=== PATIENT | female | born 1955 | race Caucasian/White ===

== ENCOUNTER → 2023-05-17 | Emergency (ER) | payer OTHER ==
[~2023-05-17] MED LIST: CEFTRIAXONE 1000 MG/VIAL ONE; CIPROFLOXACIN HCL 500 MG TAB ONE; FENTANYL CITR 100 MCG/2 ML ONE; KETOROLAC 30 MG/ML INJ ONE; NA CHLORIDE 0.9% 1,000 ML ONE; ONDANSETRON 4 MG/2 ML VIAL ONE
--- OUTSIDE RECORDS SUMMARY | 2023-05-17 20:06 | XMS REPORT | Continuity of Care Document ---
Author Name Unknown Address [address] [facility] [address] [place] [address] [facility] thconnect Address [address] [facility] [address] [place] [address] Care Team Providers Care 911 Dispatcher Name Role Phone Darrel MTZ, Aravind Irwin Primary Care Physician Doctor Unassigned, Export Attending Clinician U IRAJ Cruz Attending Clinician Unavail able Only, Adc Pob2 Test Attending Clinician Unavaila Iraj Cifuentes DO Attending Clinician Lab, Adc Fam Pob I Attending Clinician Unavailab Adriane Galvan Attending Clinician [phone] ADRIANE CANO Attending Clinician Unavailabl e Jimmy Awad Attending Clinician [phone] JIMMY GALAVIZ Attending Clinician Unavailable Payers Payer Name Policy Type Policy Number Effective Date Expirati on Date Source Allergies, Adverse Reactions, Alerts Allergy Name Allergy Type Status Severity Reaction(s) Onset Date Inactive Date Treating Clinician Comments Source NO KNOWN ALLERGIE S Drug Class Active [facility] Social History Social Habit Start Date Stop Date Quantity Comments Source Sexual orientation U [facility] Exposure to SARS-CoV-2 (event) 2019-09-23 00:00:00 2019-10-23 09:44:00 Not sure [facility] Sex Assigned At 1955 00:00[birth year]00 1955 00:00:00 [facility] Smoking Status Start Date Stop Date Source Tobacco smoking consumption unknown [facility] Encounters Start Date/Time End Date/Time Encounter Type Admission Type Attending [facility] Care Department Encounter ID Source 2021-03-31 00:00:00 2021-03-31 00:00:00 Patient Secure Msg Doctor Unassigned, Export [facility] 1..840.114 [id number] [facility] 2021-03-26 13:30:00 2021-03-26 13:30:00 Outpatient IRAJ MARIA [facility] [id number] [facility] 2021-03-26 13:30:00 2021-03-26 13:30:00 Laboratory Only Only, Adc Pob2 Test Iraj [place] [facility] 1..840.114 [id number] [facility] 2021-03-26 13:30:00 2021-03-26 13:24:25 Outpatient IRAJ MARIA [facility] [id number] [facility] 2020-02-24 17:33:55 2020-02-24 17:53:55 Laboratory Only Lab, Adc Fam Pob I Adriane Cano [facility] [address] ..840.114 [id number] [facility] 2020-02-24 17:40:00 2020-02-24 17:40:00 Outpatient R ADRIANE CANO [facility] [id number] [facility] 2019-10-24 00:00:00 2019-10-24 00:00:00 Patient Secure Msg Doctor Unassigned, Export [facility] [id number] [facility] 2019-10-23 09:41:42 2019-10-23 10:01:42 Laboratory Only Lab, Adc [facility] Pob Jimmy Berg [facility] One 1..840.114 [id number] [facility] 2019-10-23 09:40:00 2019-10-23 09:40:00 Outpatient JIMMY KENDRICK [facility] [id number] [facility]
[2023-05-17 20:52] LABS: Absolute Lymphocytes (CBC) 2.9 K/uL (0.7-4.9); Hematocrit 37.5 % (36.0-45.0); Lymphocytes % 18.4 % (15.3-44.8); MCV 84.7 fL (80-100); MPV 7.4 fL (7.6-11.3); Platelets 296 thou/uL (152-406); RBC Red Blood Cell Count 4.43 M/uL (3.86-4.86)
[2023-05-17 21:10] LABS: Specific Gravity < 1.005 (1.005-1.030); Urine Bacteria <20 /HPF (<20); Urine Bilirubin NEGATIVE (Negative); Urine Blood 3+ (Negative); Urine Clarity Turbid (Clear); Urine Color Light-Yellow (Yellow); Urine Glucose NEGATIVE (Negative); Urine Protein NEGATIVE (Negative); Urine RBC <5 /HPF (None Seen); Urine Urobilinogen Normal (Normal); Urine WBC Clump Occasional /HPF (None Seen); Urine pH 6.5 (5.0-7.0)
[2023-05-17 21:13] LABS: Bilirubin Total 0.6 mg/dL (0.2-1.0); Potassium 3.6 mEq/L (3.5-5.1); Protein, Total 7.7 g/dL (6.4-8.2)
--- NOTE | 2023-05-17 21:26 | RAD REPORT ---
EXAM DESCRIPTION: CT - Stone Protocol - 05/17/2023 8:47 pm CLINICAL HISTORY: PAIN COMPARISON: No comparisons TECHNIQUE: Thin cut axial CT imaging of the abdomen and pelvis was performed without IV contrast. Mu ltiplanar reformats were generated and reviewed. All CT scans are performed using dose optimization technique as appropriate and may include automated exposure control or mA/KV adjustment according to patient size. FINDINGS: No suspicious findings in the lung bases. The liver, spleen, adrenal glands, and pancreas show no suspicious findings. Gallbladder was surgical ly removed. Symmetric renal contour, without suspicious parenchymal findings within limits of noncontrast techniq ue. No evidence of radiopaque calculi or hydroureteronephrosis. No dilated bowel loops or bowel wall thickening. No free air, free fluid or inflammatory stranding. N o hernia, mass or bulky lymphadenopathy. Status post hysterectomy. The urinary bladder is without sig nificant finding. No suspicious bony findings. IMPRESSION: No acute intra-abdominal process.
--- NOTE | 2023-05-17 22:00 | EDPHYS ---
Physician Documentation [facility] Name: Cris Minor Age: 67 yrs Sex: Female : 1955 Arrival Date: 05/17/2023 Time: 19:56 Bed 10 Private MD: Praveena Sotomayor ED Physician Bruno Jean HPI: 05/17 20:29 This 67 yrs old Female presents to ER via Ambulatory with complaints of manda Urinary Problem, Back Pain, Abdominal Pain. 20:29 The patient presents with pain that is acute, with no known mechanism of injury. The manda symptoms are located in the right mid back and right low back. Onset: The symptoms/episode began/occurred 2 day(s) ago. The pain radiates to the right mid back and right low back. Associated signs and symptoms: The patient has no apparent associated signs or symptoms. Modifying factors: The patient symptoms are alleviated by nothing, the patient symptoms are aggravated by nothing. Severity of symptoms: At their worst the symptoms were mild, moderate, in the emergency department the symptoms are unchanged. The patient has not experienced similar symptoms in the past. Historical: - Allergies: 20:12 No Known Allergies; rv - Home Meds: 20:12 None [Active]; rv - PMHx: 20:12 Hypertensive disorder; Hypercholesterolemia; Paroxysmal supraventricular tachycardia; rv - PSHx: 20:12 Appendectomy; Cholecystectomy; hysterectomy; rv - Immunization history:: Adult Immunizations up to date. - Social history:: Smoking status: Patient denies any tobacco usage or history of. - Family history:: not pertinent. ROS: 20:29 Constitutional: Negative for fever, chills, and weight loss, Eyes: Negative for injury, manda pain, redness, and discharge, ENT: Negative for injury, pain, and discharge, Neck: Negative for injury, pain, and swelling, Cardiovascular: Negative for chest pain, palpitations, and edema, Respiratory: Negative for shortness of breath, cough, wheezing, and pleuritic chest pain, : Negative for injury, bleeding, discharge, and swelling, MS/Extremity: Negative for injury and deformity, Skin: Negative for injury, rash, and discoloration, Neuro: Negative for headache, weakness, numbness, tingling, and seizure, Psych: Negative for depression, anxiety, suicide ideation, homicidal ideation, and hallucinations, Allergy/Immunology: Negative for hives, rash, and allergies, Endocrine: Negative for neck swelling, polydipsia, polyuria, polyphagia, and marked weight changes, Hematologic/Lymphatic: Negative for swollen nodes, abnormal bleeding, and unusual bruising, 20:29 Abdomen/GI: Positive for abdominal pain, of the posterior aspect of right lateral abdomen, anterior aspect of right lateral abdomen and right lower quadrant, Exam: 20:29 Constitutional: This is a well developed, well nourished patient who is awake, alert, manda and in no acute distress. Head/Face: Normocephalic, atraumatic. Eyes: Pupils equal round and reactive to light, extra-ocular motions intact. Lids and lashes normal. Conjunctiva and sclera are non-icteric and not injected. Cornea within normal limits. Periorbital areas with no swelling, redness, or edema. ENT: Nares patent. No nasal discharge, no septal abnormalities noted. Tympanic membranes are normal and external auditory canals are clear. Oropharynx with no redness, swelling, or masses, exudates, or evidence of obstruction, uvula midline. Mucous membranes moist. Neck: Trachea midline, no thyromegaly or masses palpated, and no cervical lymphadenopathy. Supple, full range of motion without nuchal rigidity, or vertebral point tenderness. No Meningismus. Chest/axilla: Normal chest wall appearance and motion. Nontender with no deformity. No lesions are appreciated. Cardiovascular: Regular rate and rhythm with a normal S1 and S2. No gallops, murmurs, or rubs. Normal PMI, no JVD. No pulse deficits. Respiratory: Lungs have equal breath sounds bilaterally, clear to auscultation and percussion. No rales, rhonchi or wheezes noted. No increased work of breathing, no retractions or nasal flaring. Abdomen/GI: Soft, non-tender, with normal bowel sounds. No distension or tympany. No guarding or rebound. No evidence of tenderness throughout. Female : Normal external genitalia. Skin: Warm, dry with normal turgor. Normal color with no rashes, no lesions, and no evidence of cellulitis. MS/ Extremity: Pulses equal, no cyanosis. Neurovascular intact. Full, normal range of motion. Neuro: Awake and alert, GCS 15, oriented to person, place, time, and situation. Cranial nerves II-XII grossly intact. Motor strength 5/5 in all extremities. Sensory grossly intact. Cerebellar exam normal. Normal gait. Psych: Awake, alert, with orientation to person, place and time. Behavior, mood, and affect are within normal limits. 20:29 Back: pain, that is mild, that is moderate, ROM is normal, normal spinal alignment noted, CVA tenderness, that is mild, is noted on the right, muscle spasm, is appreciated in the right mid back and right low back, Vital Signs: 20:10 BP 153 / 68; Pulse 72; Resp 17; Temp 97.6; Pulse Ox 100% ; Weight 68.04 kg; Height 5 rv ft. 1 in. ; 20:31 BP 147 / 71; Pulse 70; Resp 17 S; Pulse Ox 100% on R/A; ha1 21:15 BP 144 / 72; Pulse 68; Resp 17 S; Pulse Ox 98% on R/A; ha1 22:01 BP 131 / 63; Pulse 68; Resp 17 S; Temp 98.1; Pulse Ox 100% on R/A; ha1 22:09 BP 131 / 63; Pulse 66; Resp 16; Temp 98; Pulse Ox 99% on R/A; rv 20:10 Body Mass Index 28.34 (68.04 kg, 154.94 cm) rv MDM: 20:13 Patient medically screened. manda 20:36 Differential diagnosis: Hydronephrosis Osteoarthritis Pyelonephritis Renal Infarction manda ruptured disc, sprain, Ureterolithiasis. Data reviewed: vital signs, nurses notes, lab test result(s), radiologic studies, CT scan. Consideration of Admission/Observation Escalation of care including admission/observation considered. I considered the following discharge prescriptions or medication management in the emergency department Medications were administered in the Emergency Department. See MAR. Independent interpretation of the following test(s) in the Emergency Department CT Scan: My interpretation is ct stone. Test considered but Not performed: Ultrasound no abd usg. Historians other than the Patient: patient well informed. Care significantly affected by the following chronic conditions: Hypertension. 05/17 20:29 Order name: CBC with Diff; Complete Time: 20:54 manda 05/17 20: Order name: CMP; Complete Time: 21:48 manda 05/17 20: Order name: Lipase; Complete Time: 21:48 manda 05/17 20:29 Order name: Urinalysis w/ reflexes; Complete Time: 21:48 [facility] 05/17 21:13 Order name: Urine Culture EDAR 05/17 20:29 Order name: CT Stone Protocol; Complete Time: 21:48 [facility] 05/17 20:29 Order name: IV Saline Lock; Complete Time: 20:32 [facility] 05/17 20:29 Order name: Labs collected and sent; Complete Time: 20:32 manda Administered Medications: 20:54 Drug: NS 0.9% IV 1000 ml IV at 1 bolus Per protocol; 1000 mL bolus Route: IV; Rate: 1 ha1 bolus; Site: right forearm; 20:54 Drug: Ondansetron IVP 4 mg IVP once; over 2 minutes Route: IVP; Site: right forearm; ha1 21:15 Follow up: Response: No adverse reaction ha1 20:57 Drug: Ketorolac IVP 30 mg IVP once Route: IVP; Site: right forearm; ha1 21:15 Follow up: Response: No adverse reaction; Pain is decreased ha1 20:58 Drug: fentaNYL (PF) IVP 50 mcg IVP once Route: IVP; Site: right forearm; ha1 21:15 Follow up: Response: No adverse reaction; Pain is decreased; RASS: Alert and Calm (0) ha1 20:58 Drug: Rocephin IV 1 grams IV at per protocol once; Given slow IV push per pharmacy ha1 instructions Route: IV; Rate: per protocol; Site: right forearm; 21:15 Follow up: Response: No adverse reaction; IV Status: Completed infusion ha1 22:09 Drug: Ciprofloxacin PO 500 mg PO once Route: PO; rv 22:09 Follow up: Response: Medication administered at discharge. rv Disposition Summary: 05/17/23 22:00 Discharge Ordered Notes: Location: Home manda Problem: new manda Symptoms: have improved manda Condition: Stable manda Diagnosis - UTI/ Urinary tract infection, site not specified manda - Elevated white blood cell count manda Followup: manda - With: Praveena Sotomayor - When: 2 - 3 days - Reason: Recheck today's complaints, Continuance of care, Re-evaluation by your physician Discharge Instructions: - Discharge Summary Sheet manda - Abdominal Pain, Adult manda - Urinary Tract Infection, Adult manda - Urinary Tract Infection, Adult, [id number] manda - Abdominal Pain, Adult, [id number] [facility] Forms: - Medication Reconciliation Form [facility] - Thank You Letter manda - Antibiotic Education manda - Prescription Opioid Use manda - Patient Portal Instructions [facility] - Leadership Thank You Letter manda Prescriptions: - acetaminophen-codeine 300-30 mg Oral tablet - take 2 tablet ORAL route every 6 hours as needed for pain; 20 tablet; Refills: [facility] 0, Product Selection Permitted - ondansetron 4 mg Oral Tablet,disintegrating - take 1 tablet ORAL route every 6 to 8 hours as needed for nausea and vomiting; [facility] 20 tablet; Refills: 0, Product Selection Permitted - Cipro 500 mg Oral Tablet - take 1 tablet ORAL route every 12 hours for 7 days; 14 tablet; Refills: 0, [facility] Product Selection Permitted - Bactrim DS 800-160 mg Oral tablet - take 1 tablet ORAL route every 12 hours for 5 days; 10 tablet; Refills: 0, [facility] Product Selection Permitted Signatures: Dispatcher [employer] Bruno Mars MD MD cha Vicente, Ronaldo RN Kristal Gregg RN RN ha1
--- NOTE | 2023-05-17 22:00 | ER ---
Nurse's Notes [facility] Name: Cris Minor Age: 67 yrs Sex: Female : 1955 Arrival Date: 05/17/2023 Time: 19:56 Bed 10 Private MD: Praveena Sotomayor Diagnosis: UTI/ Urinary tract infection, site not specified;Elevated white blood cell count Presentation: 05/17 20:10 Chief complaint: Patient states: back pain started morning today, with burning, rv frequency, and urgency with urination. pain rad to right groin. denies fever/chills/vomiting. Coronavirus screen: At this time, the client does not indicate any symptoms associated with coronavirus-19. Ebola Screen: No symptoms or risks identified at this time. Initial Sepsis Screen: Does the patient meet any 2 criteria? No. Patient's initial sepsis screen is negative. Does the patient have a suspected source of infection? No. Patient's initial sepsis screen is negative. Risk Assessment: Do you want to hurt yourself or someone else? Patient reports no desire to harm self or others. Onset of symptoms was May 17, 2023. 20:10 Method Of Arrival: Ambulatory rv 20:10 Acuity: MARIA ELENA 3 rv Triage Assessment: 20:12 General: Appears in no apparent distress. Behavior is calm, cooperative. Pain: rv Complains of pain in back. Neuro: Level of Consciousness is awake, alert, obeys commands, Oriented to person, place, time, situation. Cardiovascular: Capillary refill < 3 seconds Patient's skin is warm and dry. Respiratory: Airway is patent Respiratory effort is even, unlabored. GI: No signs and/or symptoms were reported involving the gastrointestinal system. : Reports burning with urination, pain urgency, urinary frequency. Musculoskeletal: Range of motion: intact in all extremities. Historical: - Allergies: 20:12 No Known Allergies; rv - Home Meds: 20:12 None [Active]; rv - PMHx: 20:12 Hypertensive disorder; Hypercholesterolemia; Paroxysmal supraventricular tachycardia; rv - PSHx: 20:12 Appendectomy; Cholecystectomy; hysterectomy; rv - Immunization history:: Adult Immunizations up to date. - Social history:: Smoking status: Patient denies any tobacco usage or history of. - Family history:: not pertinent. Screenin:[facility] Fall Risk Assessment (Adult) History of falling in the last 3 months, rv including since admission No falls in past 3 months (0 pts) Score/Fall Risk Level 0 - 2 = Low Risk Oriented to surroundings, Maintained a safe environment, Educated pt \T\ family on fall prevention, incl call for assistance when getting out of bed, Assessed \T\ reinforced patient's understanding of fall precautions. Abuse screen: Denies threats or abuse. Denies injuries from another. Nutritional screening: No deficits noted. Tuberculosis screening: No symptoms or risk factors identified. Assessment: 20:15 General: Appears uncomfortable, Behavior is cooperative. Pain: Complains of pain in ha1 back flank Pain radiates to pelvis Pain currently is 9 out of 10 on a pain scale. Quality of pain is described as burning, throbbing, Pain began 1 day ago. Neuro: Level of Consciousness is awake, alert, obeys commands, Oriented to person, place, time, situation. Cardiovascular: Capillary refill < 3 seconds Patient's skin is warm and dry. Respiratory: Airway is patent Respiratory effort is even, unlabored, Respiratory pattern is regular, symmetrical. GI: No signs and/or symptoms were reported involving the gastrointestinal system. : Urine is clear, Reports burning with urination, pain in bilateral flank(s), urgency. Derm: Skin is pink, warm \T\ dry. Musculoskeletal: Circulation, motion, and sensation intact. Range of motion: intact in all extremities. 21:15 Reassessment: Patient and/or family updated on plan of care and expected duration. Pain ha1 level reassessed. Patient is alert, oriented x 3, equal unlabored respirations, skin warm/dry/pink. pain 2/10 Patient states feeling better. Patient states symptoms have improved. 22:01 Reassessment: Patient and/or family updated on plan of care and expected duration. Pain ha1 level reassessed. Patient is alert, oriented x 3, equal unlabored respirations, skin warm/dry/pink. Vital Signs: 20:10 BP 153 / 68; Pulse 72; Resp 17; Temp 97.6; Pulse Ox 100% ; Weight 68.04 kg; Height 5 rv ft. 1 in. ; 20:31 BP 147 / 71; Pulse 70; Resp 17 S; Pulse Ox 100% on R/A; ha1 21:15 BP 144 / 72; Pulse 68; Resp 17 S; Pulse Ox 98% on R/A; ha1 22:01 BP 131 / 63; Pulse 68; Resp 17 S; Temp 98.1; Pulse Ox 100% on R/A; ha1 22:09 BP 131 / 63; Pulse 66; Resp 16; Temp 98; Pulse Ox 99% on R/A; rv 20:10 Body Mass Index 28.34 (68.04 kg, 154.94 cm) rv ED Course: 20:05 Patient arrived in ED. mr 20:06 Praveena Sotomayor is Private Physician. mr 20:07 Praveena Sotomayor is Private Physician. mr 20:12 Triage completed. rv 20:12 Arm band placed on right wrist. rv 20:13 Bruno Jean MD is Attending Physician. manda 20:14 Patient has correct armband on for positive identification. Placed in gown. Bed in low ha1 position. Call light in reach. Side rails up X 1. 20:14 No provider procedures requiring assistance completed. rv 20:24 Inserted saline lock: 20 gauge in right antecubital area, using aseptic technique. rv Blood collected. 20:29 Kristal Brownlee, RN is Primary Nurse. ha1 20:49 CT Stone Protocol In Process Unspecified. EDMS 22:00 Praveena Sotomayor is Referral Physician. manda 22:09 IV discontinued, intact, bleeding controlled, No redness/swelling at site. Pressure rv dressing applied. Administered Medications: 20:54 Drug: NS 0.9% IV 1000 ml IV at 1 bolus Per protocol; 1000 mL bolus Route: IV; Rate: 1 ha1 bolus; Site: right forearm; 20:54 Drug: Ondansetron IVP 4 mg IVP once; over 2 minutes Route: IVP; Site: right forearm; ha1 21:15 Follow up: Response: No adverse reaction ha1 20:57 Drug: Ketorolac IVP 30 mg IVP once Route: IVP; Site: right forearm; ha1 21:15 Follow up: Response: No adverse reaction; Pain is decreased ha1 20:58 Drug: fentaNYL (PF) IVP 50 mcg IVP once Route: IVP; Site: right forearm; ha1 21:15 Follow up: Response: No adverse reaction; Pain is decreased; RASS: Alert and Calm (0) ha1 20:58 Drug: Rocephin IV 1 grams IV at per protocol once; Given slow IV push per pharmacy ha1 instructions Route: IV; Rate: per protocol; Site: right forearm; 21:15 Follow up: Response: No adverse reaction; IV Status: Completed infusion ha1 22:09 Drug: Ciprofloxacin PO 500 mg PO once Route: PO; rv 22:09 Follow up: Response: Medication administered at discharge. rv Medication: 20:14 VIS not applicable for this client. rv Outcome: 22:00 Discharge ordered by . manda 22:02 Condition: stable ha1 22:09 Discharged to home ambulatory, rv 22:09 Discharge instructions given to patient, Instructed on discharge instructions, follow up and referral plans. medication usage, Demonstrated understanding of instructions, follow-up care, medications, Prescriptions given X 4, 22:10 Patient left the ED. rv Signatures: Dispatcher [employer] EDMS Bruno Jean MD MD cha Rivera, Mary, [facility] Mike mr Javid Finnegan RN RN Kristla Brownlee RN RN [facility] Corrections: (The following items were deleted from the chart) 21:03 19:58 fentaNYL (PF) IVP 50 mcg IVP in right forearm 1 ha1 21: 19:55 Ketorolac IVP 30 mg IVP in right forearm [place] [id number] 21:03 19:44 NS 0.9% IV 1000 ml IV at 1 bolus in right forearm [place] [id number] 21:04 19:50 Ondansetron IVP 4 mg IVP in right forearm [place] [id number]
[2023-05-17 22:23] VITALS: BP 131/63; TEMP 98; O2SAT 99
== END ==
LOC: ER 19:56
DX: N39.0 Urinary tract infection, site not specified (principal); D72.829 Elevated white blood cell count, unspecified; I10 Essential (primary) hypertension
CPT/HCPCS: 87088; 85025; 81001; 87086; 36415; 83690; 80053; 76377; 74176; J3010; J2405; J7030; J0696

== ENCOUNTER 2023-06-24 08:04 | Emergency (ER) | payer OTHER ==
--- OUTSIDE RECORDS SUMMARY | 2023-06-24 08:07 | XMS REPORT | Continuity of Care Document ---
Author Name Unknown Address [address] [facility] [address] [place] [address] [facility] thconnect Address [address] [facility] [address] [place] [address] Care Team Providers Care Operating Room Orderly Name Role Phone Darrel MTZ, Aravind Irwin Primary Care Physician Doctor Unassigned, [place] Attending Clinician U IRAJ Cruz Attending Clinician Unavail able Only, Adc Pob2 Test Attending Clinician Unavaila Iraj Cifuentes DO Attending Clinician [phone] Lab, Adc Fam Pob I Attending Clinician Unavailab Adriane Galvan Attending Clinician [phone] ADRIANE CANO Attending Clinician Unavailabl e Jimmy Awad Attending Clinician [phone] JIMMY GALAVIZ Attending Clinician Unavailable Payers Payer Name Policy Type Policy Number Effective Date Expirati on Date Source Allergies, Adverse Reactions, Alerts Allergy Name Allergy Type Status Severity Reaction(s) Onset Date Inactive Date Treating Clinician Comments Source NO KNOWN ALLERGIE S Drug Class Active [facility] Social History Social Habit Start Date Stop Date Quantity Comments Source Sexual orientation U [facility] Exposure to SARS-CoV-2 (event) 2019-09-23 00:00:00 2019-10-23 09:44:00 Not sure [facility] Sex Assigned At 1955 00:00[birth year]00 1955 00:00:00 [facility] Smoking Status Start Date Stop Date Source Tobacco smoking consumption unknown [facility] Encounters Start Date/Time End Date/Time Encounter Type Admission Type Attending [facility] Facility Care Department Encounter ID Source 2021-03-31 00:00:00 2021-03-31 00:00:00 Patient Secure Msg Doctor Unassigned, Taylors [facility] 1..840.114 [id number] [id number] [facility] 2021-03-26 13:30:00 2021-03-26 13:30:00 Outpatient IRAJ [facility]IA [facility] [id number] [facility] 2021-03-26 13:30:00 2021-03-26 13:30:00 Laboratory Only Only, Adc Pob2 Test Iraj [place] [facility] 1..840.114 350.1.13.10 [id number] [facility] 2021-03-26 13:30:00 2021-03-26 13:24:25 Outpatient IRAJ MARIA [facility] [id number] [facility] 2020-02-24 17:33:55 2020-02-24 17:53:55 Laboratory Only Lab, Adc Fam Pob I Adriane Cano [facility] [address] 1..840.114 [id number] [id number] [facility] 2020-02-24 17:40:00 2020-02-24 17:40:00 Outpatient ADRIANE MITCHELL [facility] [id number] [facility] 2019-10-24 00:00:00 2019-10-24 00:00:00 Patient Secure Msg Doctor Unassigned, [place]lors [facility] 1..840.114 [id number] [id number] [facility] 2019-10-23 09:41:42 2019-10-23 10:01:42 Laboratory Only Lab, Adc Fam Pob Jimmy Berg [facility] 1..840.114 [id number] [id number] [facility] 2019-10-23 09:40:00 2019-10-23 09:40:00 Outpatient JIMMY KENDRICK [facility] [id number] [facility]
--- NOTE | 2023-06-24 08:24 | ER ---
Nurse's Notes [facility] Name: rCis Minor Age: 67 yrs Sex: Female : 1955 Arrival Date: 06/24/2023 Time: 08:04 Bed 16 Private MD: Diagnosis: Cellulitis of face Presentation: 06/23 08:15 Chief complaint: Patient states: L side of face redness, swelling getting worse since ll1 Monday morning. Saw her doctor and started antibiotics . No fever, + chills. Coronavirus screen: Vaccine status: Patient reports receiving the 2nd dose of the covid vaccine. Client denies travel out of the [place] in the last 14 days. At this time, the client does not indicate any symptoms associated with coronavirus-19. Ebola Screen: Patient denies travel to an Ebola-affected area in the 21 days before illness onset. 08:15 Method Of Arrival: Ambulatory ll1 08:15 Initial Sepsis Screen: Does the patient meet any 2 criteria? No. Patient's initial 1 sepsis screen is negative. Does the patient have a suspected source of infection? No. Patient's initial sepsis screen is negative. Risk Assessment: Do you want to hurt yourself or someone else? Patient reports no desire to harm self or others. Onset of symptoms was June 21, 2023. 08:15 Acuity: MARIA ELENA 3 ll1 Triage Assessment: 08:19 Bite description: bite sustained to L cheek by an unknown animal, animal information: ll1 vaccination(s) is not applicable. General: Appears uncomfortable, Behavior is calm, cooperative, appropriate for age. Pain: Complains of pain in L cheek Quality of pain is described as aching. Neuro: No deficits noted. Cardiovascular: No deficits noted. Derm: Abscess located on L cheek has no drainage, is hot to touch, is red, is raised. Historical: - Allergies: 08:15 Sulfa (Sulfonamide Antibiotics); ll1 - PMHx: 08:15 Hypercholesterolemia; Hypertensive disorder; Paroxysmal supraventricular tachycardia; ll1 carotid blockage (Paroxysmal supraventricular tachycardia); - PSHx: 08:15 Appendectomy; Cholecystectomy; hysterectomy; ll1 - Immunization history:: Adult Immunizations up to date. - Social history:: Smoking status: Patient denies any tobacco usage or history of. Screenin:19 [facility] ED Fall Risk Assessment (Adult) History of falling in the last 3 months, kc6 including since admission No falls in past 3 months (0 pts) Confusion or Disorientation No (0 pts) Intoxicated or Sedated No (0 pts) Impaired Gait No (0 pts) Mobility Assist Device Used No (0 pt) Altered Elimination No (0 pt) Score/Fall Risk Level 0 - 2 = Low Risk. Abuse screen: Denies threats or abuse. Denies injuries from another. Nutritional screening: No deficits noted. Tuberculosis screening: No symptoms or risk factors identified. Assessment: 08:19 Reassessment: please see triage. kc6 Vital Signs: 08:15 BP 150 / 82; Pulse 80; Resp 16; Temp 98; Pulse Ox 100% ; Weight 69.4 kg; Height 5 ft. 5 ll1 in. ; Pain 4/10; 08:15 Body Mass Index 25.46 (69.40 kg, 165.1 cm) ll1 08:15 Pain Scale: Adult ll1 ED Course: 08:08 Patient arrived in ED. im 08:08 Luis Fernando Colon DO is Attending Physician. ms3 08:13 Shalini Santacruz, JESSENIA is Primary Nurse. kc6 08:15 Arm band placed on Patient placed in an exam room, on a stretcher. ll1 08:19 Triage completed. ll1 08:19 Patient has correct armband on for positive identification. Bed in low position. Call kc6 light in reach. Side rails up X 1. Client placed on continuous cardiac and pulse oximetry monitoring. NIBP monitoring applied. 08:19 Patient maintains SpO2 saturation greater than 95% on room air. kc6 08:54 No provider procedures requiring assistance completed. Patient did not have IV access kc6 during this emergency room visit. Administered Medications: No medications were administered Medication: 08:54 VIS not applicable for this client. kc6 Outcome: 08:23 Discharge ordered by . ms3 08:54 Discharged to home ambulatory, kc6 08:54 Condition: good 08:54 Discharge instructions given to patient, Instructed on discharge instructions, follow up and referral plans. medication usage, Demonstrated understanding of instructions, follow-up care, medications, Prescriptions given X 1, 08:54 Patient left the ED. kc6 Signatures: Scott Minor RN RN ll1 Luis Fernando Colno DO DO ms3 Shalini Santacruz, RN RN kc6 Elle Manning Corrections: (The following items were deleted from the chart) 08:19 08:15 BP 150 / 82; Pulse 80bpm; ll1 ll1
--- NOTE | 2023-06-24 08:24 | EDPHYS ---
Physician Documentation [facility] Name: Cris Minor Age: 67 yrs Sex: Female : 1955 Arrival Date: 06/24/2023 Time: 08:04 Bed 16 Private MD: ED Physician Luis Fernando Colon HPI: 06/23 08:23 This 67 yrs old Female presents to ER via Ambulatory with complaints of Insect Bite - ms3 Face. 08:23 67-year-old female with past medical history of hyperlipidemia, hypertension, SVT ms3 presents to the emergency department for left facial rash. Patient states the rash began on Monday and she was seen by her primary care physician on and started on Augmentin and prednisone and the rash has become worse.. Historical: - Allergies: 08:15 Sulfa (Sulfonamide Antibiotics); ll1 - PMHx: 08:15 Hypercholesterolemia; Hypertensive disorder; Paroxysmal supraventricular tachycardia; ll1 carotid blockage (Paroxysmal supraventricular tachycardia); - PSHx: 08:15 Appendectomy; Cholecystectomy; hysterectomy; ll1 - Immunization history:: Adult Immunizations up to date. - Social history:: Smoking status: Patient denies any tobacco usage or history of. ROS: 08:23 Constitutional: Negative for fever, and chills. Neck: Negative for injury, pain, and ms3 swelling, Cardiovascular: Negative for chest pain, and palpitations. Respiratory: Negative for shortness of breath, cough, wheezing, and pleuritic chest pain, Abdomen/GI: Negative for abdominal pain, nausea, vomiting, diarrhea, and constipation, MS/Extremity: Negative for injury and deformity, 08:23 Skin: Positive for cellulitis, 08:23 All other systems are negative, Exam: 08:23 Constitutional: This is a well developed, well nourished patient who is awake, alert, ms3 and in no acute distress. 08:23 Cardiovascular: Regular rate and rhythm with a normal S1 and S2. No gallops, murmurs, or rubs. Normal PMI, no JVD. No pulse deficits. Respiratory: Lungs have equal breath sounds bilaterally, clear to auscultation and percussion. No rales, rhonchi or wheezes noted. No increased work of breathing, no retractions or nasal flaring. Abdomen/GI: Soft, non-tender, with normal bowel sounds. No distension or tympany. No guarding or rebound. No evidence of tenderness throughout. 08:23 Head/face: Noted is rash, cellulitis, Vital Signs: 08:15 BP 150 / 82; Pulse 80; Resp 16; Temp 98; Pulse Ox 100% ; Weight 69.4 kg; Height 5 ft. 5 ll1 in. ; Pain 4/10; 08:15 Body Mass Index 25.46 (69.40 kg, 165.1 cm) ll1 08:15 Pain Scale: Adult ll1 MDM: 08:23 Patient medically screened. ms3 08:23 Differential diagnosis: Cellulitis versus insect bite versus allergic reaction. Data ms3 reviewed: vital signs, nurses notes, and as a result, I will discharge patient. Care significantly affected by the following chronic conditions: Hypertension, Hyperlipidemia, SVT. Counseling: I had a detailed discussion with the patient and/or guardian regarding the historical points, exam findings, and any diagnostic results supporting the discharge/admit diagnosis, the need for outpatient follow up, to return to the emergency department if symptoms worsen or persist or if there are any questions or concerns that arise at home. Special discussion: I discussed with the patient/guardian in detail that at this point there is no indication for admission to the hospital. It is understood, however, that if the symptoms persist or worsen the patient needs to return immediately for re-evaluation. ED course: Discussed physical exam findings with patient. Patient given prescription for doxycycline. Patient to follow-up with primary care physician in 2 to 3 days. Patient understands and agrees with plan. All questions were answered. Return precautions discussed include worsening symptoms, or any other concerns.. Administered Medications: No medications were administered Disposition Summary: 06/24/23 08:23 Discharge Ordered Notes: Location: Home ms3 Condition: Stable ms3 Diagnosis - Cellulitis of face ms3 Followup: ms3 - With: Private Physician - When: 2 - 3 days - Reason: Recheck today's complaints Discharge Instructions: - Discharge Summary Sheet ms3 - Cellulitis, Adult ms3 Forms: - Medication Reconciliation Form ms3 - Thank You Letter ms3 - Antibiotic Education ms3 - Prescription Opioid Use ms3 - Patient Portal Instructions ms3 - Leadership Thank You Letter ms3 Prescriptions: - Doxycycline Monohydrate 100 mg Oral Tablet - take 1 tablet ORAL route every 12 hours for 10 days; 20 tablet; Refills: 0, ms3 Product Selection Permitted Signatures: Scott Minor, RN RN ll1 Luis Fernando Colon, DO ms3
[2023-06-24 09:24] VITALS: BP 150/82; TEMP 98; O2SAT 100
== END 2023-06-24 08:54 | disposition home or self-care (01) ==
LOC: ER 08:04
DX: L03.211 Cellulitis of face (principal); Z88.2 Allergy status to sulfonamides
CPT/HCPCS: 99284

== ENCOUNTER 2023-06-26 11:08 | Emergency (ER) | payer OTHER ==
--- OUTSIDE RECORDS SUMMARY | 2023-06-26 11:11 | XMS REPORT | Continuity of Care Document ---
Author Name Unknown Address [address] [facility] [address] [place] [address] [facility] thconnect Address [address] [facility] [address] [place] [address] Care Team Providers Care Sampler Radioactive Waste Name Role Phone Darrel MTZ, Aravind Irwin Primary Care Physician Doctor Unassigned, [place] Attending Clinician U IRAJ Cruz Attending Clinician Unavail able Only, Adc Pob2 Test Attending Clinician Unavaila Iraj Cifuentes DO Attending Clinician [phone] Lab, Adc Fam Pob I Attending Clinician Unavailab le Adriane Vargas Attending Clinician [phone] ADRIANE CANO Attending Clinician Unavailabl e Jimmy Awad Attending Clinician [phone] JIMMY GALAVIZ Attending Clinician Unavailable Payers Payer Name Policy Type Policy Number Effective Date Expirati on Date Source Allergies, Adverse Reactions, Alerts Allergy Name Allergy Type Status Severity Reaction(s) Onset Date Inactive Date Treating Clinician Comments Source NO KNOWN ALLERGIE S Drug Class Active [facility] Social History Social Habit Start Date Stop Date Quantity Comments Source Sexual orientation U [facility] Exposure to SARS-CoV-2 (event) 2019-09-23 00:00:00 2019-10-23 09:44:00 Not sure [facility] Sex Assigned At 1955 00:00:00 1955 00:00:00 [facility] Smoking Status Start Date Stop Date Source Tobacco smoking consumption unknown [facility] Encounters Start Date/Time End Date/Time Encounter Type Admission Type Attending [facility] Facility Care Department Encounter ID Source 2021-03-31 00:00:00 2021-03-31 00:00:00 Patient Secure Msg Doctor Unassigned, [place] [facility] 1..840.114 350.1.13.10 [id number] [facility] 2021-03-26 13:30:00 2021-03-26 13:30:00 Outpatient IRAJ MARIA [facility] [id number] [facility] 2021-03-26 13:30:00 2021-03-26 13:30:00 Laboratory Only Only, Adc Pob2 Test Iraj [place] [facility] 1..840.114 350.1.13.10 [id number] [id number] [facility] 2021-03-26 13:30:00 2021-03-26 13:24:25 Outpatient IRAJ MARIA [facility] [id number] [facility] 2020-02-24 17:33:55 2020-02-24 17:53:55 Laboratory Only Lab, Adc Fam Pob I Adriane Cano [facility] [address] 1..840.114 350.1.13.10 [id number] [facility] 2020-02-24 17:40:00 2020-02-24 17:40:00 Outpatient ADRIANE MITCHELL [facility] [id number] [facility] 2019-10-24 00:00:00 2019-10-24 00:00:00 Patient Secure Msg Doctor Unassigned, [place] [facility] [employer] [facility] 1..840.114 350.1.13.10 [id number] [id number] [facility] 2019-10-23 09:41:42 2019-10-23 10:01:42 Laboratory Only Lab, Adc Fam Pob Jimmy Berg [facility] 1..840.114 350.1.13.10 [id number] [facility] 2019-10-23 09:40:00 2019-10-23 09:40:00 Outpatient JIMMY KENDRICK [facility] [id number] [facility]
[2023-06-26 12:03] LABS: Absolute Basophils 0.1 K/uL (0-0.5); Absolute Monocytes 0.2 K/uL (0.1-1.3); Absolute Neutrophil 6.9 K/uL (1.8-8.0); Eosinophils % 0.3 % (0-4.4); Hematocrit 40.7 % (36.0-45.0); Hemoglobin 13.7 g/dL (12.0-15.0); Lymphocytes % 12.7 % (15.3-44.8); MCH 28.8 pg (27.0-35.0); MCHC 33.7 g/dL (32.0-36.0); MCV 85.7 fL (80-100); MPV 7.6 fL (7.6-11.3); Monocytes % 2.9 % (3.3-12.3); Neutrophils % 83.1 % (41.7-73.7); Platelets 368 thou/uL (152-406); RBC Red Blood Cell Count 4.75 M/uL (3.86-4.86); Red Cell Distribution Width 12.6 % (12.1-15.2)
[2023-06-26 12:20] LABS: Anion Gap 8.8 mEq/L (5.0-15.0); Potassium 3.8 mEq/L (3.5-5.1)
--- NOTE | 2023-06-26 12:50 | RAD REPORT ---
EXAM DESCRIPTION: CT - Soft Tissue Neck W/Contr - 06/26/2023 12:38 pm CLINICAL HISTORY: Neck pain and swelling COMPARISON: None. TECHNIQUE: Computed axial tomography of the neck was obtained. 50 cc Isovue 300 was administered in travenously. Coronal and sagittal reconstruction was performed. All CT scans are performed using dose optimization technique as appropriate and may include automated exposure control or mA/KV adjustment according to patient size. FINDINGS: The pharynx, tongue base, larynx and subglottic trachea appear unremarkable The parotid, submandibular and thyroid glands appear unremarkable. Mild to moderate stranding is present within the L subcutaneous tissues left cheek. No fluid-filled a bscess seen. Two preseptal air bubbles anterior to the left lobe. Small amount of fluid right and ethmoid maxillary sinus IMPRESSION: Left cheek cellulitis without fluid-filled abscess. Two air bubbles left preseptal. Left globe and intraorbital contents appear unremarkable Small amount of fluid right maxillary and ethmoid sinus may indicate an acute sinusitis.
--- NOTE | 2023-06-26 13:19 | EDPHYS ---
Physician Documentation [facility] Name: Cris Minor Age: 67 yrs Sex: Female : 1955 Arrival Date: 06/26/2023 Time: 11:08 Bed 6 Private MD: Praveena Sotomayor ED Physician Rafael Collins HPI: 06/25 11:43 This 67 yrs old Female presents to ER via Ambulatory with complaints of Facial Swelling.ec2 11:43 Patient arrives today d/t concern for L cheek swelling. Patient reports several days of ec2 swelling, initially on Augmentin, transition to doxycycline. Patient reports no fevers or chills, nausea or vomiting. Patient reports otherwise has been taking her antibiotics.. Historical: - Allergies: 11:39 Sulfa (Sulfonamide Antibiotics); ph - PMHx: 11:39 Carotid blockage (Paroxysmal supraven); Hypercholesterolemia; Hypertensive disorder; ph Paroxysmal supraventricular tachycardia; - PSHx: 11:39 Appendectomy; Cholecystectomy; hysterectomy; ph - Immunization history:: Adult Immunizations up to date, Client reports having NOT received the Covid vaccine. Last tetanus immunization: < 5 years ago. - Infectious Disease History:: Denies. - Social history:: Smoking status: Patient denies any tobacco usage or history of. ROS: 11:43 Constitutional: as per hpi ec2 Exam: 11:43 Constitutional: GEN: NAD Head: atraumatic Eyes: EOMI Ears: External ears are ec2 normal. CV: regular rate LUNGS: no respiratory distress ABD: non-distended SKIN: Erythema noted to the left cheek, no significant fluctuance appreciated. MSK: no evidence of trauma NEURO: moves all extremities equally Vital Signs: 11:36 BP 159 / 86; Pulse 81; Resp 20; Temp 98.1; Pulse Ox 100% ; Weight 69.4 kg; Height 5 ft. ph 4 in. ; Pain 6/10; 13:27 BP 143 / 69; Pulse 78; Resp 15; Pulse Ox 100% ; ll1 11:36 Body Mass Index 26.26 (69.40 kg, 162.56 cm) ph 11:36 Pain Scale: Adult ph MDM: 11:43 Patient medically screened. ec2 11:43 Data reviewed: vital signs. ED course: Patient arrives today for evaluation of left ec2 cheek erythema. Examination remarkable for cheek findings as above. Will obtain lab work, CT imaging. Evaluate for underlying abscess, suspect persistent cellulitis.. 12:50 ED course: CBC reassuring without leukocytosis, metabolic profile reassuring. Pending ec2 CT imaging. . 13:04 ED course: CT imaging shows cellulitis, no underlying abscess. Will discharge home and ec2 have follow-up primary care doctor and have her continue antibiotic coverage.. 06/25 11:43 Order name: CBC with Diff; Complete Time: 12:50 ec2 06/25 11:43 Order name: BMP; Complete Time: 12:50 ec2 06/25 12:32 Order name: Soft Tissue Neck W/Contr; Complete Time: 12:58 EDMS Administered Medications: No medications were administered Disposition Summary: 06/26/23 13:19 Discharge Ordered Notes: Location: Home ec2 Condition: Stable ec2 Diagnosis - Cellulitis of face ec2 Followup: ec2 - With: Private Physician - When: - Reason: Re-evaluation by your physician Discharge Instructions: - Discharge Summary Sheet ec2 - Cellulitis, Adult ec2 Forms: - Medication Reconciliation Form ec2 - Thank You Letter ec2 - Antibiotic Education ec2 - Prescription Opioid Use ec2 - Patient Portal Instructions ec2 - Leadership Thank You Letter ec2 Prescriptions: - Clindamycin HCl 150 mg Oral capsule - take 3 capsule ORAL route every 6 hours for 7 days; 63 capsule; Refills: 0, ec2 Product Selection Permitted Signatures: Dispatcher [employer] Sania Sargent RN RN Rafael Collins MD MD ec2 Corrections: (The following items were deleted from the chart) 11:44 11:44 Maxillofacial W/Cont+CT.RAD.BRZ ordered. BRAYAN SCHMIDT
--- NOTE | 2023-06-26 13:19 | ER ---
Nurse's Notes [facility] Name: Cris Minor Age: 67 yrs Sex: Female : 1955 Arrival Date: 06/26/2023 Time: 11:08 Bed 6 Private MD: Praveena Sotomayor Diagnosis: Cellulitis of face Presentation: 06/25 11:36 Chief complaint: Patient states: Cellulitis to left cheek/face since . Pt was ph on oral antibiotics from PCP, was seen in this ER on Monday and antibiotics switched to doxycycline, pt reports redness and swelling is worse today. Coronavirus screen: Vaccine status: Patient reports being unvaccinated. Client denies travel out of the [place] in the last 14 days. Ebola Screen: Patient negative for fever greater than or equal to 101.5 degrees Fahrenheit, and additional compatible Ebola Virus Disease symptoms Patient denies exposure to infectious person. Patient denies travel to an Ebola-affected area in the 21 days before illness onset. Initial Sepsis Screen: Does the patient meet any 2 criteria? No. Patient's initial sepsis screen is negative. Does the patient have a suspected source of infection? No. Patient's initial sepsis screen is negative. Risk Assessment: Do you want to hurt yourself or someone else? Patient reports no desire to harm self or others. Onset of symptoms was June 22, 2023. 11:36 Method Of Arrival: Ambulatory 11:36 Acuity: MARIA ELENA 3 ph Triage Assessment: 11:39 General: Appears in no apparent distress. uncomfortable, Behavior is calm, cooperative. ph Pain: Complains of pain in left cheek Pain does not radiate. Pain currently is 6 out of 10 on a pain scale. Quality of pain is described as burning. Derm: Reports increased burning, pain that is 6 out of 10 on a pain scale. Historical: - Allergies: 11:39 Sulfa (Sulfonamide Antibiotics); ph - PMHx: 11:39 Carotid blockage (Paroxysmal supraven); Hypercholesterolemia; Hypertensive disorder; ph Paroxysmal supraventricular tachycardia; - PSHx: 11:39 Appendectomy; Cholecystectomy; hysterectomy; ph - Immunization history:: Adult Immunizations up to date, Client reports having NOT received the Covid vaccine. Last tetanus immunization: < 5 years ago. - Infectious Disease History:: Denies. - Social history:: Smoking status: Patient denies any tobacco usage or history of. Screenin:27 [facility] ED Fall Risk Assessment (Adult) History of falling in the last 3 months, ll1 including since admission No falls in past 3 months (0 pts) Confusion or Disorientation No (0 pts) Intoxicated or Sedated No (0 pts) Impaired Gait No (0 pts) Mobility Assist Device Used No (0 pt) Altered Elimination No (0 pt) Score/Fall Risk Level 0 - 2 = Low Risk Oriented to surroundings, Maintained a safe environment, Educated pt \T\ family on fall prevention, incl call for assistance when getting out of bed, Assessed \T\ reinforced patient's understanding of fall precautions, Provided non-skid footwear, Hourly rounding (assess needs \T\ fall precautionary measures) done, Used ambulatory aids as needed (educated on \T\ assisted with), Used gait belt as appropriate. Abuse screen: Denies threats or abuse. Denies injuries from another. Nutritional screening: No deficits noted. Tuberculosis screening: No symptoms or risk factors identified. Assessment: 11:41 General: MD in triage to assess pt. ph Vital Signs: 11:36 BP 159 / 86; Pulse 81; Resp 20; Temp 98.1; Pulse Ox 100% ; Weight 69.4 kg; Height 5 ft. ph 4 in. ; Pain 6/10; 13:27 BP 143 / 69; Pulse 78; Resp 15; Pulse Ox 100% ; ll1 11:36 Body Mass Index 26.26 (69.40 kg, 162.56 cm) ph 11:36 Pain Scale: Adult ph ED Course: 11:11 Patient arrived in ED. mr 11:11 Praveena Sotomayor is Private Physician. mr 11:13 Rafael Collins MD is Attending Physician. ec2 11:39 Triage completed. ph 11:39 Arm band placed on left wrist. ph 11:58 BMP Sent. bc6 11:58 CBC with Diff Sent. bc6 11:58 Initial lab(s) drawn, by ia, sent to lab. Inserted saline lock: 22 gauge in left bc6 antecubital area, using aseptic technique. Blood collected. 12:39 Soft Tissue Neck W/Contr In Process Unspecified. EDMS 13:27 Scott Minor, JESSENIA is Primary Nurse. ll1 13:27 Patient has correct armband on for positive identification. Allergy band placed. Placed ll1 in gown. Bed in low position. Call light in reach. Side rails up X 1. Provided Education on: na. Pulse ox on. NIBP on. Door closed. Noise minimized. Lights dimmed. Warm blanket given. 13:27 No provider procedures requiring assistance completed. IV discontinued, intact, ll1 bleeding controlled, No redness/swelling at site. Pressure dressing applied. Administered Medications: No medications were administered Medication: 13: VIS not applicable for this client. ll1 Outcome: 13:19 Discharge ordered by MD. ec2 13:27 Discharged to home ambulatory, ll1 13:27 Condition: stable 13:27 Discharge instructions given to patient, Instructed on discharge instructions, follow up and referral plans. medication usage, Demonstrated understanding of instructions, follow-up care, medications, Prescriptions given X 1, 13:30 Patient left the ED. ll1 Signatures: Dispatcher [employer] EDMS Melody Martin, Mike Reg mr Sania Vargas RN RN Scott Coreas RN RN ll1 Gregoria Benavidez 6 Rafael Collins MD MD ec2 Corrections: (The following items were deleted from the chart) 11:42 11:36 Chief complaint: Patient states: Cellulitis to left cheek/face since . Pt ph was on oral antibiotics from PCP, was seen in this ER on Monday and antibiotics switched to Clindamycin, pt reports redness and swelling is worse today. ph
[2023-06-26 19:06] VITALS: BP 143/69; TEMP 98.1; O2SAT 100
== END 2023-06-26 13:30 | disposition home or self-care (01) ==
LOC: ER 11:08
DX: L03.211 Cellulitis of face (principal); Z88.2 Allergy status to sulfonamides
CPT/HCPCS: 85025; 80048; 36415; 70491; 99284; Q9967